=== PATIENT | female | born 1980 | race Caucasian/White ===

== ENCOUNTER 2016-05-13 07:59 | Emergency (ER) | payer MEDICAID ==
[2016-05-13 08:53] LABS: BASO % 0.5 % (0.0-1.0); EOS # 0.1 K/mm3 (0.0-0.50); EOS % 2.2 % (0.0-3.0); LARGE UNSTAINED CELL # 0.1 K/mm3 (0.0-0.4); LARGE UNSTAINED CELL % 1.6 % (0.0-4.0); LYMPH # 1.7 K/mm3 (1.5-4.5); LYMPH % 25.4 % (24.0-44.0); MEAN CORPUSCULAR HEMOGLOBIN 32.2 pg (27.0-33.0); MEAN CORPUSCULAR HGB CONC 34.3 g/dl (32.0-36.5); MEAN CORPUSCULAR VOLUME 93.8 fl (80.0-96.0); MONO # 0.2 K/mm3 (0.0-0.8); MONO % 3.5 % (0.0-5.0); NEUTROPHILS # 4.4 K/mm3 (1.8-7.7); NEUTROPHILS % 66.8 % (36.0-66.0); PLATELET COUNT, AUTOMATED 338 k/mm3 (150-450); RED CELL DISTRIBUTION WIDTH 12.2 % (11.5-14.5); WHITE BLOOD COUNT 6.5 K/mm3 (4.0-10.0)
[2016-05-13 08:57] LABS: CONTROL LINE UCG INT CTR LINE PRESENT
[2016-05-13 09:20] LABS: ALBUMIN 3.5 GM/DL (3.2-5.2); ALKALINE PHOSPHATASE 48 U/L (45-117); ALT/SGPT 26 U/L (12-78); ANION GAP 7 MEQ/L (8-16); AST/SGOT 11 U/L (15-37); BILIRUBIN,DIRECT 0.1 MG/DL (0.0-0.2); BILIRUBIN,TOTAL 0.3 MG/DL (0.2-1.0); BLOOD UREA NITROGEN 12 MG/DL (7-18); CALCIUM LEVEL 8.8 MG/DL (8.5-10.1); CARBON DIOXIDE LEVEL 28 MEQ/L (21-32); CHLORIDE LEVEL 104 MEQ/L (98-107); CREATININE FOR GFR 0.69 MG/DL (0.55-1.02); GLOMERULAR FILTRATION RATE > 60.0 (>60); GLUCOSE, FASTING 263 MG/DL (70-105); POTASSIUM SERUM 4.2 MEQ/L (3.5-5.1); SODIUM LEVEL 139 MEQ/L (136-145); T UPTAKE 34 % (30-39); THYROXINE (T4) 9.7 UG/DL (4.5-12.0)
--- NOTE | 2016-05-13 12:05 | EDDOCDS ---
Nurse's Notes [facility] Name: Fara Bolanos Age: 36 yrs Sex: Female : 1980 Arrival Date: 05/13/2016 Time: 07:59 Bed I3 / M3 Private MD: No Pcp Diagnosis: Lower abdominal pain, unspecified;Type 2 diabetes mellitus-new diagnosis;Hirsutism-unspecified Presentation: 05/13 08:09 Presenting complaint: Patient states: woke with lower abdominal pain. Ibuprofen kr3 decreased pain but still feeling weak and dizzy. Risk factors: the patient reports no vaginal bleeding. Adult Sepsis Screening: The patient does not have new or worsening altered mentation. Patient's respiratory rate is less than 22. Systolic blood pressure is greater than 100. Patient has a qSOFA score of 0- Negative Sepsis Screen. Suicide/Homicide risk assessment- the patient denies having any suicidal and/or homicidal ideations and does not present with any other emotional, behavioral or mental health complaints. 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 Transition of care: patient was not received from another setting of care. 08:09 Acuity: RANJIT Level 3 kr3 08:09 Method Of Arrival: Walkin/Carried/Asstd kr3 Triage Assessment: 08:10 General: Appears in no apparent distress, comfortable, Behavior is appropriate for age, kr3 cooperative. General: Reports weakness. Pain: Location: suprapubic area Pain currently is 1 out of 10 on a pain scale. Pt Declines HIV testing. Neurological: No deficits noted. Respiratory: Respiratory effort is even, unlabored. GI: Reports had dry heaves but none at present. : Denies burning with urination, discharge, urinary frequency, urgency, vaginal bleeding. Derm: Skin is normal. 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 none - PMHx: none; - PSHx: Tubal ligation; - Social history: Smoking status: Patient states former smoker of tobacco. No barriers to communication noted, The patient speaks fluent Greek, Speaks appropriately for age. - Family history: Not pertinent. - : The pt / caregiver states he / she is not on anticoagulants. Home medication list is obtained from the patient. - Exposure Risk Screening:: None identified. Screenin:15 Screening information is obtained from the patient. Fall risk: No risks identified. dls Assistance ADL's: requires no assistance with activities of daily living. Abuse/DV Screen: The patient / caregiver reports he/she is: not in a situation that causes fear, pain or injury. Nutritional screening: No deficits noted. Advance Directives: Currently, there is no health care proxy. There is no active DNR order. There is no living will. There is no Power of Telegraphic Instrument Supervisor. Advance directive information has not previously been placed in an [facility] medical record. home support is adequate. Assessment: 09:53 General: pt taken to US at this time. NAD noted.. Neurological: Level of Consciousness ttb is awake, alert. Respiratory: Airway is patent Respiratory effort is even, unlabored. Derm: Skin is normal. 12:03 General: Appears in no apparent distress, comfortable, Behavior is appropriate for age, mb9 cooperative. Respiratory: Airway is patent Respiratory effort is even, unlabored. Vital Signs: 08:10 BP 113 / 60; Pulse 78; Resp 16; Temp 97.7(O); Pulse Ox 98% on R/A; Weight 83.91 kg (R); kr3 Height 5 ft. 3 in. (160.02 cm) (R); 11:44 BP 144 / 79; Pulse 86; Resp 20; Temp 96.5; Pulse Ox 98% ; Pain 0/10; jam1 08:10 Body Mass Index 32.77 (83.91 kg, 160.02 cm) kr3 Vitals: 08:10 Log In Time: May 13, 2016 at 07:59. kr3 ED Course: 08:04 Patient visited by Henry Price Reg. mpb 08:04 Patient moved to Waiting mpb 08:05 No Pcp is Private Physician. mpb 08:10 Triage Initiated kr3 08:15 Patient moved to I3 / M3 kr3 08:19 Chi Fregoso PA-C is PHCP. ar2 08:20 Kirill Early MD is Attending Physician. ar2 08:23 Patient visited by Chi Fregoso PA-C. ar2 08:50 UA Sent. jam1 08:51 Thyroid Profile Sent. jam1 08:51 Liver Profile Sent. jam1 08:51 MED Profile Sent. jam1 08:51 CBC with Diff Sent. jam1 09:34 [facility] Payment Agreement was scanned into [employer] and attached to record. lg 09:53 Patient visited by Lana Vargas RN. ttb 09:54 Patient visited by Lana Vargas RN. ttb 11:14 Patient visited by Gabriela Shepherd RN. dls 11:15 The patient / caregiver is instructed regarding the plan of care and ED course. dls 11:38 [facility] is Referral Physician. ar2 11:53 Henry Pennington RN is Primary Nurse. mb9 12:03 No IV's were initiated during this patient's visit. No procedures done that require mb9 assistance. Order Results: Lab Order: CBC with Diff; SPEC'M 05/13/16 08:47 Test: WHITE BLOOD COUNT; Value: 6.5; Range: 4.0-10.0; Units: K/mm3; Status: F Test: RED BLOOD COUNT; Value: 4.05; Range: 4.00-5.40; Units: M/mm3; Status: F Test: HEMOGLOBIN; Value: 13.0; Range: 12.0-16.0; Units: g/dl; Status: F Test: HEMATOCRIT; Value: 38.0; Range: 36.0-47.0; Units: %; Status: F Test: MEAN CORPUSCULAR VOLUME; Value: 93.8; Range: 80.0-96.0; Units: fl; Status: F Test: MEAN CORPUSCULAR HEMOGLOBIN; Value: 32.2; Range: 27.0-33.0; Units: pg; Status: F Test: MEAN CORPUSCULAR HGB CONC; Value: 34.3; Range: 32.0-36.5; Units: g/dl; Status: F Test: RED CELL DISTRIBUTION WIDTH; Value: 12.2; Range: 11.5-14.5; Units: %; Status: F Test: PLATELET COUNT, AUTOMATED; Value: 338; Range: 150-450; Units: k/mm3; Status: F Test: NEUTROPHILS %; Value: 66.8; Range: 36.0-66.0; Abnormal: Above high normal; Units: %; Status: F Test: LYMPH %; Value: 25.4; Range: 24.0-44.0; Units: %; Status: F Test: MONO %; Value: 3.5; Range: 0.0-5.0; Units: %; Status: F Test: EOS %; Value: 2.2; Range: 0.0-3.0; Units: %; Status: F Test: BASO %; Value: 0.5; Range: 0.0-1.0; Units: %; Status: F Test: LARGE UNSTAINED CELL %; Value: 1.6; Range: 0.0-4.0; Units: %; Status: F Test: NEUTROPHILS #; Value: 4.4; Range: 1.8-7.7; Units: K/mm3; Status: F Test: LYMPH #; Value: 1.7; Range: 1.5-4.5; Units: K/mm3; Status: F Test: MONO #; Value: 0.2; Range: 0.0-0.8; Units: K/mm3; Status: F Test: EOS #; Value: 0.1; Range: 0.0-0.50; Units: K/mm3; Status: F Test: BASO #; Value: 0.0; Range: 0.0-0.2; Units: K/mm3; Status: F Test: LARGE UNSTAINED CELL #; Value: 0.1; Range: 0.0-0.4; Units: K/mm3; Status: F Lab Order: MED Profile; SPEC'M 05/13/16 08:47 Test: GLUCOSE, FASTING; Value: 263; Range: 70-105; Abnormal: Above high normal; Units: MG/DL; Status: F Test: BLOOD UREA NITROGEN; Value: 12; Range: 7-18; Units: MG/DL; Status: F Test: CREATININE FOR GFR; Value: 0.69; Range: 0.55-1.02; Units: MG/DL; Status: F Test: GLOMERULAR FILTRATION RATE; Value: > 60.0; Range: >60; Status: F Test: SODIUM LEVEL; Value: 139; Range: 136-145; Units: MEQ/L; Status: F Test: POTASSIUM SERUM; Value: 4.2; Range: 3.5-5.1; Units: MEQ/L; Status: F Test: CHLORIDE LEVEL; Value: 104; Range: 98-107; Units: MEQ/L; Status: F Test: CARBON DIOXIDE LEVEL; Value: 28; Range: 21-32; Units: MEQ/L; Status: F Test: ANION GAP; Value: 7; Range: 8-16; Abnormal: Below low normal; Units: MEQ/L; Status: F Test: CALCIUM LEVEL; Value: 8.8; Range: 8.5-10.1; Units: MG/DL; Status: F Test Note: ; Units are mL/min/1.73 m2 Chronic Kidney Disease Staging per NKF: Stage I & II GFR >=60 Normal to Mildly Decreased Stage III GFR 30-59 Moderately Decreased Stage IV GFR 15-29 Severely Decreased Stage V GFR <15 Very Little GFR Left ESRD GFR <15 on PACKAGE DYER Lab Order: Liver Profile; SPEC'05/13/16 08:47 Test: AST/SGOT; Value: 11; Range: 15-37; Abnormal: Below low normal; Units: U/L; Status: F Test: ALT/SGPT; Value: 26; Range: 12-78; Units: U/L; Status: F Test: ALKALINE PHOSPHATASE; Value: 48; Range: 45-117; Units: U/L; Status: F Test: BILIRUBIN,TOTAL; Value: 0.3; Range: 0.2-1.0; Units: MG/DL; Status: F Test: BILIRUBIN,DIRECT; Value: 0.1; Range: 0.0-0.2; Units: MG/DL; Status: F Test: TOTAL PROTEIN; Value: 7.0; Range: 6.4-8.2; Units: GM/DL; Status: F Test: ALBUMIN; Value: 3.5; Range: 3.2-5.2; Units: GM/DL; Status: F Test: ALBUMIN/GLOBULIN RATIO; Value: 1.00; Range: 1.00-1.93; Status: F Lab Order: Thyroid Profile; SPEC05/13/16 08:47 Test: T UPTAKE; Value: 34; Range: 30-39; Units: %; Status: F Test: THYROXINE (T4); Value: 9.7; Range: 4.5-12.0; Units: UG/DL; Status: F Test: FREE THYROXINE INDEX; Value: 3.3; Range: 1.3-4.8; Units: %; Status: F Test: THYROID STIMULATING HORMONE; Value: 1.020; Range: 0.358-3.740; Units: uIU/ML; Status: F Lab Order: UA; SPEC'M 05/13/16 08:47 Test: APPEARANCE, URINE; Value: CLEAR; Range: CLEAR; Status: F Test: COLOR, URINE; Value: YELLOW; Range: YELLOW; Status: F Test: PH,URINE; Value: 5.0; Range: 5.0-9.0; Units: UNITS; Status: F Test: SPECIFIC GRAVITY URINE AUTO; Value: 1.038; Range: 1.002-1.035; Status: F Test: PROTEIN, URINE AUTO; Value: NEGATIVE; Range: NEGATIVE; Units: mg/dL; Status: F Test: GLUCOSE, URINE (UA) AUTO; Value: 3+; Range: NEGATIVE; Abnormal: Above high normal; Units: mg/dL; Status: F Test: KETONE, URINE AUTO; Value: NEGATIVE; Range: NEGATIVE; Units: mg/dL; Status: F Test: UROBILINOGEN, URINE AUTO; Value: 0.2; Range: 0.0-2.0; Units: mg/dL; Status: F Test: BILIRUBIN, URINE AUTO; Value: NEGATIVE; Range: NEGATIVE; Status: F Test: NITRITE, URINE AUTO; Value: NEGATIVE; Range: NEGATIVE; Status: F Test: LEUKOCYTE ESTERASE, URINE AUTO; Value: NEGATIVE; Range: NEGATIVE; Status: F Test: BLOOD, URINE BLOOD; Value: NEGATIVE; Range: NEGATIVE; Status: F Test: WBC, URINE AUTO; Value: 3; Range: 0-3; Units: /HPF; Status: F Test: RBC, URINE AUTO; Value: 3; Range: 0-3; Units: /HPF; Status: F Test: BACTERIA, URINE AUTO; Value: NEGATIVE; Range: NEGATIVE; Status: F Test: SQUAMOUS EPITHELIAL CELL UR AU; Value: 2; Range: 0-6; Units: /HPF; Status: F Test: MUCUS, URINE; Value: SMALL; Range: NEGATIVE; Status: F Test: HYALINE CAST, URINE AUTO; Value: 0; Range: 0-1; Units: /LPF; Status: F Lab Order: UCG- In Lab; SPEC'M 05/13/16 08:47 Test: URINE PREG TEST; Value: NEGATIVE; Range: NEGATIVE; Status: F Lab Order: Hemoglobin A1c; SPEC'M 05/13/16 08:47 Test: HEMOGLOBIN A1c; Value: 8.9; Range: 4.5-6.2; Abnormal: Above high normal; Units: %; Status: F Test: ESTIMATED AVERAGE GLUCOSE; Value: 209; Range: 60-110; Abnormal: Above high normal; Units: MG/DL; Status: F Outcome: 11:42 Discharge ordered by Provider. ar2 12:03 Discharge Assessment: Patient awake, alert and oriented x 3. No cognitive and/or mb9 functional deficits noted. Patient verbalized understanding of disposition instructions. patient administered narcotics - no. The following High Risk Discharge criteria are identified: None. Discharged to home ambulatory. Condition: good Condition: stable Condition: improved. Discharge instructions given to patient, Instructed on discharge instructions, follow up and referral plans. medication usage, diet, Demonstrated understanding of instructions, medications, Pt was receptive of discharge instructions/ teaching. Prescriptions given X 3. No special radiology studies were completed. Property :Personal belongings accompany Pt. 12:05 Patient left the ED. mb9 Signatures: Gabriela Shepherd, RN RN dls Jesusita Carrillo, TERMINAL GAUGER TERMINAL GAUGER jam1 Petey Sharma, Reg Reg lg Lena Mak,RN RN demond3 Chi Fregoso, PAOmega PAJeanC [email or web address] Lana Vargas, RN RN belleb Henry PenningtonRN RN mb9 Henry Price, Reg Reg mpb MTDD
--- NOTE | 2016-05-13 12:05 | EDDOCDS ---
Physician Documentation [facility] Name: Fara Bolanos Age: 36 yrs Sex: Female : 1980 Arrival Date: 05/13/2016 Time: 07:59 Bed I3 / M3 Private MD: No Pcp Disposition: 05/13/16 11:42 Discharged to Home/Self Care. Impression: Lower abdominal pain, unspecified, Type 2 diabetes mellitus - new diagnosis, Hirsutism - unspecified. - Condition is Stable. - Discharge Instructions: Type 2 Diabetes Mellitus, Adult, Diabetes Mellitus and Food. - Prescriptions for Diabetic Supplies, Miscellan. - Glucometer, lancets and Glucometer Strips: Dispense: 1 glucometer, 30 lancets and 1 container (#30), sig: use as directed-check blood sugar twice daily. Metformin 500 mg Oral Tablet - take 1 tablet by ORAL route 2 times per day with morning and evening meals; 60 tablet. ZOFRAN ODT 4 mg Oral - dissolve 1 tablet by ORAL route every 8 hours As needed do not chew, do not swallow whole; 10 tablet. - Medication Reconciliation, Local Pharmacy Hours form. - [facility]; When: Call to arrange an appointment; Reason: Further diagnostic work-up, Recheck today's complaints, Continuance of care. Follow up: Emergency Department; When: As needed; Reason: Worsening of conditions. - Problem is new. - Symptoms have improved. Historical: - Allergies: no known allergies; - Home Meds: 1. none - PMHx: none; - PSHx: Tubal ligation; - Social history: Smoking status: Patient states former smoker of tobacco. No barriers to communication noted, The patient speaks fluent [place] Citizen, Speaks appropriately for age. - Family history: Not pertinent. - : The pt / caregiver states he / she is not on anticoagulants. Home medication list is obtained from the patient. - Exposure Risk Screening:: None identified. 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 3 in. (160.02 cm) (R); 11:44 BP 144 / 79; Pulse 86; Resp 20; Temp 96.5; Pulse Ox 98% ; Pain 0/10; jam1 08:10 Body Mass Index 32.77 (83.91 kg, 160.02 cm) kr3 MDM: 08:37 CBC with Diff Ordered. EDMS 08:37 MED Profile Ordered. EDMS 08:37 Liver Profile Ordered. EDMS 08:37 Thyroid Profile Ordered. EDMS 08:37 UA Ordered. EDMS 08:37 -US Pelvic Non-Ob Complete Ordered. EDMS 08:37 DUPLEX SCAN LIMITED (DOPPLER)+US Ordered. EDMS 08:52 UCG- In Lab Ordered. EDMS 08:55 Financial registration complete. lg 09:11 CBC with Diff Reviewed. ar2 09:11 UA Reviewed. ar2 09:11 UCG- In Lab Reviewed. ar2 09:12 Hemoglobin A1c Ordered. EDMS 09:34 [facility] Payment Agreement was scanned into [employer] and attached to record. lg 09:45 MED Profile Reviewed. ar2 09:45 Liver Profile Reviewed. ar2 09:45 Thyroid Profile Reviewed. ar2 10:15 Transvaginal NON- US Ordered. EDMS 10:16 Hemoglobin A1c Reviewed. ar2 Signatures: Dispatcher [employer] EDMS Gabriela Shepherd, JONA RN dls Petey Sharma Reg Reg lg Lena Mak,JONA RN kr3 Chi Fregoso, PA-C PA-C ar2 Henry Pennington RN RN mb9 The chart was reviewed and I authenticate all verbal orders and agree with the evaluation and treatment provided.Corrections: (The following items were deleted from the chart) 08:51 08:36 UCG by Nursing ordered. ar2 ar2 Attachments: 09:34 [facility] Payment Agreement lg MTDD
--- NOTE | 2016-05-13 21:01 | REP ---
Pelvic ultrasound non OB 05/13/2016 Indication: Pelvic pain, possible polycystic ovarian syndrome Comparison: Pelvic ultrasound 01/07/2015 Technique: Transabdominal transvaginal ultrasound was performed of the pelvis study performed with maier scale imaging color-flow Doppler and spectral wave Doppler Findings: Date of last menstrual period is 04/27/2016. The patient is Uterus measures 10.3 x 4.6 x 5.5 cm. Endometrium is 12.4 mm in thickness and smooth. Right ovary measures 5.3 x 2.3 x 3.0 cm and contains small follicles. Left ovary measures 3.8 x 3.1 x 3.0 cm and also contains a few small follicles. Perfusion is noted to the bilateral ovaries, therefore no evidence of torsion. There is no free fluid in the cul-de-sac. Small Nabothian cyst is identified within the cervix of 7 mm diameter. Impression 1. Endometrium is 12.4 mm in thickness and smooth 2. Few small bilateral nonspecific ovarian follicles. No definitive evidence of polycystic ovary. No evidence of ovarian torsion bilaterally. 3. No free fluid in cul-de-sac 4. 7 mm Nabothian cysts within cervix Signed by Sita Tinsley MD 05/13/2016 08:53 P
--- NOTE | 2016-05-15 13:06 | EDDOCDS ---
Physician Documentation [facility] Name: Fara Bolanos Age: 36 yrs Sex: Female : 1980 Arrival Date: 05/13/2016 Time: 07:59 Bed I3 / M3 Private MD: No Pcp Disposition: 05/13/16 11:42 Discharged to Home/Self Care. Impression: Lower abdominal pain, unspecified, Type 2 diabetes mellitus - new diagnosis, Hirsutism - unspecified. - Condition is Stable. - Discharge Instructions: Type 2 Diabetes Mellitus, Adult, Diabetes Mellitus and Food. - Prescriptions for Diabetic Supplies, Miscellan. - Glucometer, lancets and Glucometer Strips: Dispense: 1 glucometer, 30 lancets and 1 container (#30), sig: use as directed-check blood sugar twice daily. Metformin 500 mg Oral Tablet - take 1 tablet by ORAL route 2 times per day with morning and evening meals; 60 tablet. ZOFRAN ODT 4 mg Oral - dissolve 1 tablet by ORAL route every 8 hours As needed do not chew, do not swallow whole; 10 tablet. - Medication Reconciliation, Local Pharmacy Hours form. - [facility] up[facility]; When: Call to arrange an appointment; Reason: Further diagnostic work-up, Recheck today's complaints, Continuance of care. Follow up: Emergency Department; When: As needed; Reason: Worsening of conditions. - Problem is new. - Symptoms have improved. Historical: - Allergies: no known allergies; - Home Meds: 1. none - PMHx: none; - PSHx: Tubal ligation; - Social history: Smoking status: Patient states former smoker of tobacco. No barriers to communication noted, The patient speaks fluent Thai, Speaks appropriately for age. - Family history: Not pertinent. - : The pt / caregiver states he / she is not on anticoagulants. Home medication list is obtained from the patient. - Exposure Risk Screening:: None identified. 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 3 in. (160.02 cm) (R); 11:44 BP 144 / 79; Pulse 86; Resp 20; Temp 96.5; Pulse Ox 98% ; Pain 0/10; jam1 08:10 Body Mass Index 32.77 (83.91 kg, 160.02 cm) kr3 MDM: 08:37 CBC with Diff Ordered. EDMS 08:37 MED Profile Ordered. EDMS 08:37 Liver Profile Ordered. EDMS 08:37 Thyroid Profile Ordered. EDMS 08:37 UA Ordered. EDMS 08:37 -US Pelvic Non-Ob Complete Ordered. EDMS 08:37 DUPLEX SCAN LIMITED (DOPPLER)+US Ordered. EDMS 08:52 UCG- In Lab Ordered. EDMS 08:55 Financial registration complete. lg 09:11 CBC with Diff Reviewed. ar2 09:11 UA Reviewed. ar2 09:11 UCG- In Lab Reviewed. ar2 09:12 Hemoglobin A1c Ordered. EDMS 09:34 [facility] Payment Agreement was scanned into [employer] and attached to record. lg 09:45 MED Profile Reviewed. ar2 09:45 Liver Profile Reviewed. ar2 09:45 Thyroid Profile Reviewed. ar2 10:15 Transvaginal NON- US Ordered. EDMS 10:16 Hemoglobin A1c Reviewed. ar2 20:56 T-Sheet-- Draft Copy was scanned into [employer] and attached to record. klr Signatures: Dispatcher [employer] Gabriela Gilliam, RN JONA dls Petey Sharma, Reg Reg lg Lena Mak RN RN kr3 Chi Fregoso, PA-C PA-Georges ar2 Henry Pennington RN RN mb9 Carlita Carpior The chart was reviewed and I authenticate all verbal orders and agree with the evaluation and treatment provided.Corrections: (The following items were deleted from the chart) 08:51 08:36 UCG by Nursing ordered. ar2 ar2 Attachments: 09:34 [facility] Payment Agreement lg 20:56 T-Sheet-- Draft Copy klr Chart Complete MTDD
--- NOTE | 2016-05-15 13:06 | EDDOCDS ---
Nurse's Notes [facility] Name: Fara Bolanos Age: 36 yrs Sex: Female : 1980 Arrival Date: 05/13/2016 Time: 07:59 Bed I3 / M3 Private MD: No Pcp Diagnosis: Lower abdominal pain, unspecified;Type 2 diabetes mellitus-new diagnosis;Hirsutism-unspecified Presentation: 05/13 08:09 Presenting complaint: Patient states: woke with lower abdominal pain. Ibuprofen kr3 decreased pain but still feeling weak and dizzy. Risk factors: the patient reports no vaginal bleeding. Adult Sepsis Screening: The patient does not have new or worsening altered mentation. Patient's respiratory rate is less than 22. Systolic blood pressure is greater than 100. Patient has a qSOFA score of 0- Negative Sepsis Screen. Suicide/Homicide risk assessment- the patient denies having any suicidal and/or homicidal ideations and does not present with any other emotional, behavioral or mental health complaints. 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 Transition of care: patient was not received from another setting of care. 08:09 Acuity: RANJIT Level 3 kr3 08:09 Method Of Arrival: Walkin/Carried/Asstd kr3 Triage Assessment: 08:10 General: Appears in no apparent distress, comfortable, Behavior is appropriate for age, kr3 cooperative. General: Reports weakness. Pain: Location: suprapubic area Pain currently is 1 out of 10 on a pain scale. Pt Declines HIV testing. Neurological: No deficits noted. Respiratory: Respiratory effort is even, unlabored. GI: Reports had dry heaves but none at present. : Denies burning with urination, discharge, urinary frequency, urgency, vaginal bleeding. Derm: Skin is normal. 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 none - PMHx: none; - PSHx: Tubal ligation; - Social history: Smoking status: Patient states former smoker of tobacco. No barriers to communication noted, The patient speaks fluent Malay, Speaks appropriately for age. - Family history: Not pertinent. - : The pt / caregiver states he / she is not on anticoagulants. Home medication list is obtained from the patient. - Exposure Risk Screening:: None identified. Screenin:15 Screening information is obtained from the patient. Fall risk: No risks identified. dls Assistance ADL's: requires no assistance with activities of daily living. Abuse/DV Screen: The patient / caregiver reports he/she is: not in a situation that causes fear, pain or injury. Nutritional screening: No deficits noted. Advance Directives: Currently, there is no health care proxy. There is no active DNR order. There is no living will. There is no Power of Rehab Liaison. Advance directive information has not previously been placed in an [facility] medical record. home support is adequate. Assessment: 09:53 General: pt taken to US at this time. NAD noted.. Neurological: Level of Consciousness ttb is awake, alert. Respiratory: Airway is patent Respiratory effort is even, unlabored. Derm: Skin is normal. 12:03 General: Appears in no apparent distress, comfortable, Behavior is appropriate for age, mb9 cooperative. Respiratory: Airway is patent Respiratory effort is even, unlabored. Vital Signs: 08:10 BP 113 / 60; Pulse 78; Resp 16; Temp 97.7(O); Pulse Ox 98% on R/A; Weight 83.91 kg (R); kr3 Height 5 ft. 3 in. (160.02 cm) (R); 11:44 BP 144 / 79; Pulse 86; Resp 20; Temp 96.5; Pulse Ox 98% ; Pain 0/10; jam1 08:10 Body Mass Index 32.77 (83.91 kg, 160.02 cm) kr3 Vitals: 08:10 Log In Time: May 13, 2016 at 07:59. kr3 ED Course: 08:04 Patient visited by Henry Price Reg. mpb 08:04 Patient moved to Waiting mpb 08:05 No Pcp is Private Physician. mpb 08:10 Triage Initiated kr3 08:15 Patient moved to I3 / M3 kr3 08:19 Chi Fregoso PA-C is PHCP. ar2 08:20 Kirill Early MD is Attending Physician. ar2 08:23 Patient visited by Chi Fregoso PA-C. ar2 08:50 UA Sent. jam1 08:51 Thyroid Profile Sent. jam1 08:51 Liver Profile Sent. jam1 08:51 MED Profile Sent. jam1 08:51 CBC with Diff Sent. jam1 09:34 [facility] Payment Agreement was scanned into Active-[employer]i and attached to record. lg 09:53 Patient visited by Lana Vargas RN. ttb 09:54 Patient visited by Lana Vargas RN. ttb 11:14 Patient visited by Gabriela Shepherd, JONA. dls 11:15 The patient / caregiver is instructed regarding the plan of care and ED course. dls 11:38 [facility] is Referral Physician. ar2 11:53 Henry Pennington,JONA is Primary Nurse. mb9 12:03 No IV's were initiated during this patient's visit. No procedures done that require mb9 assistance. 20:56 T-Sheet-- Draft Copy was scanned into Active-[employer] and attached to record. klr 21:42 -US Pelvic Non-Ob Complete Returned. EDMS Order Results: Lab Order: CBC with Diff; SPEC'M 05/13/16 08:47 Test: WHITE BLOOD COUNT; Value: 6.5; Range: 4.0-10.0; Units: K/mm3; Status: F Test: RED BLOOD COUNT; Value: 4.05; Range: 4.00-5.40; Units: M/mm3; Status: F Test: HEMOGLOBIN; Value: 13.0; Range: 12.0-16.0; Units: g/dl; Status: F Test: HEMATOCRIT; Value: 38.0; Range: 36.0-47.0; Units: %; Status: F Test: MEAN CORPUSCULAR VOLUME; Value: 93.8; Range: 80.0-96.0; Units: fl; Status: F Test: MEAN CORPUSCULAR HEMOGLOBIN; Value: 32.2; Range: 27.0-33.0; Units: pg; Status: F Test: MEAN CORPUSCULAR HGB CONC; Value: 34.3; Range: 32.0-36.5; Units: g/dl; Status: F Test: RED CELL DISTRIBUTION WIDTH; Value: 12.2; Range: 11.5-14.5; Units: %; Status: F Test: PLATELET COUNT, AUTOMATED; Value: 338; Range: 150-450; Units: k/mm3; Status: F Test: NEUTROPHILS %; Value: 66.8; Range: 36.0-66.0; Abnormal: Above high normal; Units: %; Status: F Test: LYMPH %; Value: 25.4; Range: 24.0-44.0; Units: %; Status: F Test: MONO %; Value: 3.5; Range: 0.0-5.0; Units: %; Status: F Test: EOS %; Value: 2.2; Range: 0.0-3.0; Units: %; Status: F Test: BASO %; Value: 0.5; Range: 0.0-1.0; Units: %; Status: F Test: LARGE UNSTAINED CELL %; Value: 1.6; Range: 0.0-4.0; Units: %; Status: F Test: NEUTROPHILS #; Value: 4.4; Range: 1.8-7.7; Units: K/mm3; Status: F Test: LYMPH #; Value: 1.7; Range: 1.5-4.5; Units: K/mm3; Status: F Test: MONO #; Value: 0.2; Range: 0.0-0.8; Units: K/mm3; Status: F Test: EOS #; Value: 0.1; Range: 0.0-0.50; Units: K/mm3; Status: F Test: BASO #; Value: 0.0; Range: 0.0-0.2; Units: K/mm3; Status: F Test: LARGE UNSTAINED CELL #; Value: 0.1; Range: 0.0-0.4; Units: K/mm3; Status: F Lab Order: [facility]; [facility]'M 05/13/16 08:47 Test: GLUCOSE, FASTING; Value: 263; Range: 70-105; Abnormal: Above high normal; Units: MG/DL; Status: F Test: BLOOD UREA NITROGEN; Value: 12; Range: 7-18; Units: MG/DL; Status: F Test: CREATININE FOR GFR; Value: 0.69; Range: 0.55-1.02; Units: MG/DL; Status: F Test: GLOMERULAR FILTRATION RATE; Value: > 60.0; Range: >60; Status: F Test: SODIUM LEVEL; Value: 139; Range: 136-145; Units: MEQ/L; Status: F Test: POTASSIUM SERUM; Value: 4.2; Range: 3.5-5.1; Units: MEQ/L; Status: F Test: CHLORIDE LEVEL; Value: 104; Range: 98-107; Units: MEQ/L; Status: F Test: CARBON DIOXIDE LEVEL; Value: 28; Range: 21-32; Units: MEQ/L; Status: F Test: ANION GAP; Value: 7; Range: 8-16; Abnormal: Below low normal; Units: MEQ/L; Status: F Test: CALCIUM LEVEL; Value: 8.8; Range: 8.5-10.1; Units: MG/DL; Status: F Test Note: ; Units are mL/min/1.73 m2 Chronic Kidney Disease Staging per NKF: Stage I & II GFR >=60 Normal to Mildly Decreased Stage III GFR 30-59 Moderately Decreased Stage IV GFR 15-29 Severely Decreased Stage V GFR <15 Very Little GFR Left ESRD GFR <15 on THERAPIST SPEECH Lab Order: Liver Profile; SPEC'M 05/13/16 08:47 Test: AST/SGOT; Value: 11; Range: 15-37; Abnormal: Below low normal; Units: U/L; Status: F Test: ALT/SGPT; Value: 26; Range: 12-78; Units: U/L; Status: F Test: ALKALINE PHOSPHATASE; Value: 48; Range: 45-117; Units: U/L; Status: F Test: BILIRUBIN,TOTAL; Value: 0.3; Range: 0.2-1.0; Units: MG/DL; Status: F Test: BILIRUBIN,DIRECT; Value: 0.1; Range: 0.0-0.2; Units: MG/DL; Status: F Test: TOTAL PROTEIN; Value: 7.0; Range: 6.4-8.2; Units: GM/DL; Status: F Test: ALBUMIN; Value: 3.5; Range: 3.2-5.2; Units: GM/DL; Status: F Test: ALBUMIN/GLOBULIN RATIO; Value: 1.00; Range: 1.00-1.93; Status: F Lab Order: Thyroid Profile; SPEC'M 05/13/16 08:47 Test: T UPTAKE; Value: 34; Range: 30-39; Units: %; Status: F Test: THYROXINE (T4); Value: 9.7; Range: 4.5-12.0; Units: UG/DL; Status: F Test: FREE THYROXINE INDEX; Value: 3.3; Range: 1.3-4.8; Units: %; Status: F Test: THYROID STIMULATING HORMONE; Value: 1.020; Range: 0.358-3.740; Units: uIU/ML; Status: F Lab Order: UA; SPEC'M 05/13/16 08:47 Test: APPEARANCE, URINE; Value: CLEAR; Range: CLEAR; Status: F Test: COLOR, URINE; Value: YELLOW; Range: YELLOW; Status: F Test: PH,URINE; Value: 5.0; Range: 5.0-9.0; Units: UNITS; Status: F Test: SPECIFIC GRAVITY URINE AUTO; Value: 1.038; Range: 1.002-1.035; Status: F Test: PROTEIN, URINE AUTO; Value: NEGATIVE; Range: NEGATIVE; Units: mg/dL; Status: F Test: GLUCOSE, URINE (UA) AUTO; Value: 3+; Range: NEGATIVE; Abnormal: Above high normal; Units: mg/dL; Status: F Test: KETONE, URINE AUTO; Value: NEGATIVE; Range: NEGATIVE; Units: mg/dL; Status: F Test: UROBILINOGEN, URINE AUTO; Value: 0.2; Range: 0.0-2.0; Units: mg/dL; Status: F Test: BILIRUBIN, URINE AUTO; Value: NEGATIVE; Range: NEGATIVE; Status: F Test: NITRITE, URINE AUTO; Value: NEGATIVE; Range: NEGATIVE; Status: F Test: LEUKOCYTE ESTERASE, URINE AUTO; Value: NEGATIVE; Range: NEGATIVE; Status: F Test: BLOOD, URINE BLOOD; Value: NEGATIVE; Range: NEGATIVE; Status: F Test: WBC, URINE AUTO; Value: 3; Range: 0-3; Units: /HPF; Status: F Test: RBC, URINE AUTO; Value: 3; Range: 0-3; Units: /HPF; Status: F Test: BACTERIA, URINE AUTO; Value: NEGATIVE; Range: NEGATIVE; Status: F Test: SQUAMOUS EPITHELIAL CELL UR AU; Value: 2; Range: 0-6; Units: /HPF; Status: F Test: MUCUS, URINE; Value: SMALL; Range: NEGATIVE; Status: F Test: HYALINE CAST, URINE AUTO; Value: 0; Range: 0-1; Units: /LPF; Status: F Lab Order: UCG- In Lab; SPEC'M 05/13/16 08:47 Test: URINE PREG TEST; Value: NEGATIVE; Range: NEGATIVE; Status: F Lab Order: Hemoglobin A1c; SPEC'M 05/13/16 08:47 Test: HEMOGLOBIN A1c; Value: 8.9; Range: 4.5-6.2; Abnormal: Above high normal; Units: %; Status: F Test: ESTIMATED AVERAGE GLUCOSE; Value: 209; Range: 60-110; Abnormal: Above high normal; Units: MG/DL; Status: F Radiology Order: -US Pelvic Non-Ob Complete Test: -US Pelvic Non-Ob Complete REASON FOR EXAMINATION: pelvic pain ? pcos; Pelvic ultrasound non OB 05/13/2016; ; Indication: Pelvic pain, possible polycystic ovarian syndrome; ; Comparison: Pelvic ultrasound 01/07/2015; ; Technique: Transabdominal transvaginal ultrasound was performed of the pelvis; study performed with maier scale imaging color-flow Doppler and spectral wave; Doppler; ; Findings: Date of last menstrual period is 04/27/2016. The patient is ; ; Uterus measures 10.3 x 4.6 x 5.5 cm. Endometrium is 12.4 mm in thickness and; smooth.; ; Right ovary measures 5.3 x 2.3 x 3.0 cm and contains small follicles.; ; Left ovary measures 3.8 x 3.1 x 3.0 cm and also contains a few small follicles.; Perfusion is noted to the bilateral ovaries, therefore no evidence of torsion.; ; There is no free fluid in the cul-de-sac. Small Nabothian cyst is identified; within the cervix of 7 mm diameter.; ; Impression; 1. Endometrium is 12.4 mm in thickness and smooth; 2. Few small bilateral nonspecific ovarian follicles. No definitive evidence of; polycystic ovary. No evidence of ovarian torsion bilaterally.; 3. No free fluid in cul-de-sac; 4. 7 mm Nabothian cysts within cervix; ; ; Signed by; Sita Tinsley MD 05/13/2016 08:53 P; Outcome: 11:42 Discharge ordered by Provider. ar2 12:03 Discharge Assessment: Patient awake, alert and oriented x 3. No cognitive and/or mb9 functional deficits noted. Patient verbalized understanding of disposition instructions. patient administered narcotics - no. The following High Risk Discharge criteria are identified: None. Discharged to home ambulatory. Condition: good Condition: stable Condition: improved. Discharge instructions given to patient, Instructed on discharge instructions, follow up and referral plans. medication usage, diet, Demonstrated understanding of instructions, medications, Pt was receptive of discharge instructions/ teaching. Prescriptions given X 3. No special radiology studies were completed. Property :Personal belongings accompany Pt. 12:05 Patient left the ED. mb9 Signatures: Dispatcher [employer] EDMS Gabriela Shepherd, RN RN dls Jesusita Carrillo, PROFESSOR OF LITERACY PROFESSOR OF LITERACY jam1 Petey Sharma, Reg Reg lg Lena MakRN RN kr3 Chi Fregoso, PA-Georges PA-Georges ar2 Lana Vargas RN RN ttHenry Aparicio,RN RN mb9 Henry Price, Reg Reg mpb Carlita Carpio Chart Complete MTDD
--- NOTE | 2016-05-15 13:06 | EDDOCDS ---
Physician Documentation [facility] Name: Fara Bolanos Age: 36 yrs Sex: Female : 1980 Arrival Date: 05/13/2016 Time: 07:59 Bed I3 / M3 Private MD: No Pcp Disposition: 05/13/16 11:42 Discharged to Home/Self Care. Impression: Lower abdominal pain, unspecified, Type 2 diabetes mellitus - new diagnosis, Hirsutism - unspecified. - Condition is Stable. - Discharge Instructions: Type 2 Diabetes Mellitus, Adult, Diabetes Mellitus and Food. - Prescriptions for Diabetic Supplies, Miscellan. - Glucometer, lancets and Glucometer Strips: Dispense: 1 glucometer, 30 lancets and 1 container (#30), sig: use as directed-check blood sugar twice daily. Metformin 500 mg Oral Tablet - take 1 tablet by ORAL route 2 times per day with morning and evening meals; 60 tablet. ZOFRAN ODT 4 mg Oral - dissolve 1 tablet by ORAL route every 8 hours As needed do not chew, do not swallow whole; 10 tablet. - Medication Reconciliation, Local Pharmacy Hours form. - [facility]; When: Call to arrange an appointment; Reason: Further diagnostic work-up, Recheck today's complaints, Continuance of care. Follow up: Emergency Department; When: As needed; Reason: Worsening of conditions. - Problem is new. - Symptoms have improved. Historical: - Allergies: no known allergies; - Home Meds: 1. none - PMHx: none; - PSHx: Tubal ligation; - Social history: Smoking status: Patient states former smoker of tobacco. No barriers to communication noted, The patient speaks fluent Nicaraguan, Speaks appropriately for age. - Family history: Not pertinent. - : The pt / caregiver states he / she is not on anticoagulants. Home medication list is obtained from the patient. - Exposure Risk Screening:: None identified. [employer]ERG[employer] HELPER: 05/13 08:10 LMP 04/12/2016 kr3 Vital Signs: 08:10 BP 113 / 60; Pulse 78; Resp 16; Temp 97.7(O); Pulse Ox 98% on R/A; Weight 83.91 kg / kr3 184.99 lbs (R); Height 5 ft. 3 in. (160.02 cm) (R); 11:44 BP 144 / 79; Pulse 86; Resp 20; Temp 96.5; Pulse Ox 98% ; Pain 0/10; jam1 08:10 Body Mass Index 32.77 (83.91 kg, 160.02 cm) kr3 MDM: 08:37 CBC with Diff Ordered. EDMS 08:37 MED Profile Ordered. EDMS 08:37 Liver Profile Ordered. EDMS 08:37 Thyroid Profile Ordered. EDMS 08:37 UA Ordered. EDMS 08:37 -US Pelvic Non-Ob Complete Ordered. EDMS 08:37 DUPLEX SCAN LIMITED (DOPPLER)+US Ordered. EDMS 08:52 UCG- In Lab Ordered. EDMS 08:55 Financial registration complete. lg 09:11 CBC with Diff Reviewed. ar2 09:11 UA Reviewed. ar2 09:11 UCG- In Lab Reviewed. ar2 09:12 Hemoglobin A1c Ordered. EDMS 09:34 [facility] Payment Agreement was scanned into [employer] and attached to record. lg 09:45 MED Profile Reviewed. ar2 09:45 Liver Profile Reviewed. ar2 09:45 Thyroid Profile Reviewed. ar2 10:15 Transvaginal NON- US Ordered. EDMS 10:16 Hemoglobin A1c Reviewed. ar2 20:56 T-Sheet-- Draft Copy was scanned into [employer] and attached to record. klr Signatures: Dispatcher [employer] Gabriela Gilliam, RN JONA dls Petey Sharma, Reg Reg lg Lena Mak RN RN kr3 Chi Fregoso, PA-C PA-Georges ar2 Henry Pennington RN RN mb9 Carlita Carpior The chart was reviewed and I authenticate all verbal orders and agree with the evaluation and treatment provided.Corrections: (The following items were deleted from the chart) 08:51 08:36 UCG by Nursing ordered. ar2 ar2 Attachments: 09:34 [facility] Payment Agreement lg 20:56 T-Sheet-- Draft Copy klr Chart Complete MTDD
== END 2016-05-13 12:05 | disposition home or self-care (01) ==
LOC: M ED 07:59
DX: R10.30 Lower abdominal pain, unspecified (principal); E11.9 Type 2 diabetes mellitus without complications; L68.0 Hirsutism; Z87.891 Personal history of nicotine dependence

== ENCOUNTER → 2016-05-18 | Outpatient (REF) | payer MEDICAID ==
[2016-05-18 12:48] LABS: ALBUMIN 3.9 GM/DL (3.2-5.2); ALBUMIN/GLOBULIN RATIO 1.15 (1.00-1.93); ALKALINE PHOSPHATASE 49 U/L (45-117); ALT/SGPT 32 U/L (12-78); ANION GAP 9 MEQ/L (8-16); AST/SGOT 23 U/L (15-37); BILIRUBIN,TOTAL 0.5 MG/DL (0.2-1.0); BLOOD UREA NITROGEN 17 MG/DL (7-18); CARBON DIOXIDE LEVEL 29 MEQ/L (21-32); CHLORIDE LEVEL 103 MEQ/L (98-107); CHOLESTEROL LEVEL 252 MG/DL (<200); CREATININE FOR GFR 0.65 MG/DL (0.55-1.02); FREE T4 1.01 NG/DL (0.76-1.46); GLOMERULAR FILTRATION RATE > 60.0 (>60); GLUCOSE, FASTING 206 MG/DL (70-105); POTASSIUM SERUM 4.3 MEQ/L (3.5-5.1); SODIUM LEVEL 141 MEQ/L (136-145); TOTAL PROTEIN 7.3 GM/DL (6.4-8.2); TRIGLYCERIDES LEVEL 178 MG/DL (<150)
== END ==
LOC: M SFHCADAM 09:33
PROVIDERS: ATTEND Physician Assistant Medical
DX: E11.9 Type 2 diabetes mellitus without complications (principal); E66.9 Obesity, unspecified

== ENCOUNTER → 2016-07-02 | Outpatient (REF) | payer MEDICAID | LOC: M SFHCADAM 09:34 | PROVIDERS: ATTEND Physician Assistant Medical | DX: Z12.4 Encounter for screening for malignant neoplasm of cervix (principal) ==

== ENCOUNTER → 2016-08-29 | Outpatient (REF) | payer MEDICAID ==
[2016-08-29 13:38] LABS: ALBUMIN 3.9 GM/DL (3.2-5.2); ALBUMIN/GLOBULIN RATIO 1.18 (1.00-1.93); ALKALINE PHOSPHATASE 43 U/L (45-117); ALT/SGPT 26 U/L (12-78); ANION GAP 6 MEQ/L (8-16); AST/SGOT 12 U/L (15-37); BILIRUBIN,TOTAL 0.3 MG/DL (0.2-1.0); BLOOD UREA NITROGEN 13 MG/DL (7-18); CALCIUM LEVEL 9.1 MG/DL (8.5-10.1); CARBON DIOXIDE LEVEL 32 MEQ/L (21-32); CHLORIDE LEVEL 102 MEQ/L (98-107); CREATININE FOR GFR 0.56 MG/DL (0.55-1.02); GLOMERULAR FILTRATION RATE > 60.0 (>60); GLUCOSE, FASTING 156 MG/DL (70-105); POTASSIUM SERUM 4.9 MEQ/L (3.5-5.1); SODIUM LEVEL 140 MEQ/L (136-145); TOTAL PROTEIN 7.2 GM/DL (6.4-8.2)
== END ==
LOC: M SFHCADAM 08:02
PROVIDERS: ATTEND Physician Assistant Medical
DX: E11.9 Type 2 diabetes mellitus without complications (principal)

== ENCOUNTER → 2016-12-26 | Outpatient (REF) | payer OTHER ==
[2016-12-26 13:50] LABS: ALBUMIN 3.7 GM/DL (3.2-5.2); ALBUMIN/GLOBULIN RATIO 1.09 (1.00-1.93); ALKALINE PHOSPHATASE 38 U/L (45-117); ALT/SGPT 23 U/L (12-78); ANION GAP 8 MEQ/L (8-16); AST/SGOT 11 U/L (15-37); BILIRUBIN,TOTAL 0.3 MG/DL (0.2-1.0); BLOOD UREA NITROGEN 12 MG/DL (7-18); CALCIUM LEVEL 9.2 MG/DL (8.5-10.1); CARBON DIOXIDE LEVEL 28 MEQ/L (21-32); CHLORIDE LEVEL 107 MEQ/L (98-107); CHOLESTEROL LEVEL 183 MG/DL (<200); GLOMERULAR FILTRATION RATE > 60.0 (>60); GLUCOSE, FASTING 144 MG/DL (70-105); POTASSIUM SERUM 4.3 MEQ/L (3.5-5.1); SODIUM LEVEL 143 MEQ/L (136-145); TOTAL PROTEIN 7.1 GM/DL (6.4-8.2); TRIGLYCERIDES LEVEL 149 MG/DL (<150)
== END ==
LOC: M SFHCADAM 08:06
PROVIDERS: ATTEND Physician Assistant Medical
DX: E11.9 Type 2 diabetes mellitus without complications (principal); E55.9 Vitamin D deficiency, unspecified

== ENCOUNTER 2017-04-14 11:51 | Emergency (ER) | payer OTHER ==
[~2017-04-14] VITALS: Ht 160 cm; Wt 79.5 kg
[2017-04-14] MEDS ORDERED: PRAV20TA2 (12:04)
[2017-04-14] MEDS ORDERED: VITA1CAP40 (12:04)
[2017-04-14] MEDS ORDERED: METF10004 PO (12:04)
--- NOTE | 2017-04-14 14:27 | REP ---
Clinical: Acute cough . Comparison: None . Technique: PA and lateral. Findings: The mediastinum and cardiac silhouette are normal. The lung posey are clear and without acute consolidation, effusion, or pneumothorax. The skeletal structures are intact and normal. Impression: 1. No acute cardiopulmonary process. Signed by Curly Perez MD 04/14/2017 02:19 P
[2017-04-14] MEDS ORDERED: TESS100C PO (14:44)
[2017-04-14] MEDS ORDERED: ZITHTAB PO (14:44)
[2017-04-14 14:56] VITALS: BP 118/75
== END 2017-04-14 14:58 | disposition home or self-care (01) ==
LOC: M ED 11:51
DX: J06.9 Acute upper respiratory infection, unspecified (principal)

== ENCOUNTER → 2017-07-11 | Outpatient (REF) | payer OTHER ==
[2017-07-11 12:17] LABS: BASO % 0.4 % (0.0-1.0); EOS # 0.3 10^3/uL (0.0-0.50); EOS % 3.8 % (0.0-3.0); HEMATOCRIT 37.7 % (36.0-47.0); HEMOGLOBIN 12.5 g/dl (12.0-16.0); IMMATURE GRANULOCYTE % 0.3 % (0-3.0); LYMPH # 2.6 10^3/uL (1.5-4.5); LYMPH % 35.9 % (24.0-44.0); MEAN CORPUSCULAR HGB CONC 33.2 g/dl (32.0-36.5); MEAN CORPUSCULAR VOLUME 93.5 fl (80.0-96.0); MONO # 0.4 10^3/uL (0.0-0.8); MONO % 5.9 % (0.0-5.0); NEUTROPHILS # 3.8 10^3/uL (1.8-7.7); NEUTROPHILS % 53.7 % (36.0-66.0); PLATELET COUNT, AUTOMATED 425 10^3/uL (150-450); RED BLOOD COUNT 4.03 10^6/uL (4.00-5.40); RED CELL DISTRIBUTION WIDTH 12.5 % (11.5-14.5); WHITE BLOOD COUNT 7.1 10^3/uL (4.0-10.0)
[2017-07-11 12:59] LABS: MALB URINE SIEMENS 11.1 MG/L; MAU/CREAT RATIO 5.8 MCG/MG (0.0-30.0)
[2017-07-11 13:11] LABS: ALBUMIN 3.6 GM/DL (3.2-5.2); ALKALINE PHOSPHATASE 44 U/L (45-117); ALT/SGPT 23 U/L (12-78); ANION GAP 9 MEQ/L (8-16); AST/SGOT 14 U/L (7-37); BILIRUBIN,TOTAL 0.4 MG/DL (0.2-1.0); BLOOD UREA NITROGEN 13 MG/DL (7-18); CALCIUM LEVEL 8.7 MG/DL (8.5-10.1); CARBON DIOXIDE LEVEL 27 MEQ/L (21-32); CHLORIDE LEVEL 103 MEQ/L (98-107); CHOLESTEROL LEVEL 175 MG/DL (<200); CHOLESTEROL RISK RATIO 3.017 (<5); CREATININE FOR GFR 0.59 MG/DL (0.55-1.30); GLOMERULAR FILTRATION RATE > 60.0 (>60); GLUCOSE, FASTING 187 MG/DL (70-100); HDL CHOLESTEROL 58 MG/DL (>40); NON-HDL-C 117 MG/DL; POTASSIUM SERUM 4.4 MEQ/L (3.5-5.1); SODIUM LEVEL 139 MEQ/L (136-145); TOTAL PROTEIN 7.2 GM/DL (6.4-8.2); TRIGLYCERIDES LEVEL 115 MG/DL (<150)
[2017-07-11 13:40] LABS: ESTIMATED AVERAGE GLUCOSE 189 MG/DL (60-110); HEMOGLOBIN A1c 8.2 %
== END ==
LOC: M SFHCADAM 08:15
DX: E55.9 Vitamin D deficiency, unspecified (principal); E11.9 Type 2 diabetes mellitus without complications
CPT/HCPCS: 83036

== ENCOUNTER → 2017-09-20 | Outpatient (REF) | payer OTHER ==
[2017-09-20 13:11] LABS: ESTIMATED AVERAGE GLUCOSE 183 MG/DL (60-110)
[2017-09-20 13:14] LABS: ALBUMIN/GLOBULIN RATIO 1.11 (1.00-1.93); ALKALINE PHOSPHATASE 41 U/L (45-117); ALT/SGPT 30 U/L (12-78); ANION GAP 9 MEQ/L (8-16); AST/SGOT 16 U/L (7-37); BILIRUBIN,TOTAL 0.4 MG/DL (0.2-1.0); BLOOD UREA NITROGEN 15 MG/DL (7-18); CALCIUM LEVEL 8.7 MG/DL (8.5-10.1); CARBON DIOXIDE LEVEL 25 MEQ/L (21-32); CHLORIDE LEVEL 105 MEQ/L (98-107); CREATININE FOR GFR 0.61 MG/DL (0.55-1.30); GLOMERULAR FILTRATION RATE > 60.0 (>60); GLUCOSE, FASTING 170 MG/DL (70-100); POTASSIUM SERUM 4.2 MEQ/L (3.5-5.1); SODIUM LEVEL 139 MEQ/L (136-145); TOTAL PROTEIN 7.6 GM/DL (6.4-8.2)
== END ==
LOC: M SFHCADAM 08:03
DX: E11.9 Type 2 diabetes mellitus without complications (principal)

== ENCOUNTER → 2017-11-28 | Outpatient (REF) | payer OTHER | LOC: M SFHCADAM 12:10 | DX: L03.115 Cellulitis of right lower limb (principal) | CPT/HCPCS: 87186 ==

== ENCOUNTER → 2017-12-16 | Outpatient (REF) | payer OTHER ==
[2017-12-16 12:54] LABS: ALBUMIN 3.7 GM/DL (3.2-5.2); ALBUMIN/GLOBULIN RATIO 1.09 (1.00-1.93); ALKALINE PHOSPHATASE 35 U/L (45-117); ALT/SGPT 25 U/L (12-78); ANION GAP 10 MEQ/L (8-16); AST/SGOT 13 U/L (7-37); BILIRUBIN,TOTAL 0.4 MG/DL (0.2-1.0); BLOOD UREA NITROGEN 9 MG/DL (7-18); CALCIUM LEVEL 9.1 MG/DL (8.5-10.1); CARBON DIOXIDE LEVEL 26 MEQ/L (21-32); CHLORIDE LEVEL 106 MEQ/L (98-107); CHOLESTEROL LEVEL 190 MG/DL (<200); CHOLESTEROL RISK RATIO 2.968 (<5); CREATININE FOR GFR 0.48 MG/DL (0.55-1.30); GLOMERULAR FILTRATION RATE > 60.0 (>60); GLUCOSE, FASTING 129 MG/DL (70-100); HDL CHOLESTEROL 64 MG/DL (>40); LDL CHOLESTEROL 103.8 MG/DL (<100); NON-HDL-C 126 MG/DL; POTASSIUM SERUM 4.6 MEQ/L (3.5-5.1); SODIUM LEVEL 142 MEQ/L (136-145); TOTAL PROTEIN 7.1 GM/DL (6.4-8.2); TRIGLYCERIDES LEVEL 111 MG/DL (<150)
[2017-12-16 13:14] LABS: ESTIMATED AVERAGE GLUCOSE 171 MG/DL (60-110); HEMOGLOBIN A1c 7.6 %
== END ==
LOC: M SFHCADAM 08:16
DX: E11.9 Type 2 diabetes mellitus without complications (principal)

== ENCOUNTER → 2018-03-18 | Outpatient (REF) | payer OTHER ==
[2018-03-18 13:21] LABS: ALBUMIN 3.8 GM/DL (3.2-5.2); ALBUMIN/GLOBULIN RATIO 1.12 (1.00-1.93); ALKALINE PHOSPHATASE 42 U/L (45-117); ALT/SGPT 23 U/L (12-78); ANION GAP 7 MEQ/L (8-16); AST/SGOT 12 U/L (7-37); BILIRUBIN,TOTAL 0.4 MG/DL (0.2-1.0); BLOOD UREA NITROGEN 13 MG/DL (7-18); CALCIUM LEVEL 8.9 MG/DL (8.5-10.1); CARBON DIOXIDE LEVEL 27 MEQ/L (21-32); CHLORIDE LEVEL 106 MEQ/L (98-107); CREATININE FOR GFR 0.54 MG/DL (0.55-1.30); GLOMERULAR FILTRATION RATE > 60.0 (>60); GLUCOSE, FASTING 136 MG/DL (70-100); POTASSIUM SERUM 4.2 MEQ/L (3.5-5.1); SODIUM LEVEL 140 MEQ/L (136-145); TOTAL PROTEIN 7.2 GM/DL (6.4-8.2)
[2018-03-18 13:50] LABS: ESTIMATED AVERAGE GLUCOSE 160 MG/DL (60-110); HEMOGLOBIN A1c 7.2 %
== END ==
LOC: M SFHCADAM 08:07
DX: E11.9 Type 2 diabetes mellitus without complications (principal)
CPT/HCPCS: 80053

== ENCOUNTER → 2018-11-20 | Outpatient (REF) | payer OTHER ==
[~2018-11-20] MED LIST: HYDR-3715 PO; METF10004 PO; PRAV20TA2; TESS100C PO; VITA50005; ZITHTAB PO
[2018-11-20 12:55] LABS: BASO % 0.4 % (0.0-1.0); EOS # 0.2 10^3/uL (0.0-0.50); EOS % 2.8 % (0.0-3.0); HEMATOCRIT 40.3 % (36.0-47.0); LYMPH # 2.2 10^3/uL (1.5-4.5); MEAN CORPUSCULAR HEMOGLOBIN 31.9 pg (27.0-33.0); MEAN CORPUSCULAR HGB CONC 32.3 g/dl (32.0-36.5); MONO # 0.4 10^3/uL (0.0-0.8); MONO % 5.5 % (0.0-5.0); NEUTROPHILS # 4.2 10^3/uL (1.8-7.7); PLATELET COUNT, AUTOMATED 388 10^3/uL (150-450); RED BLOOD COUNT 4.07 10^6/uL (4.00-5.40)
[2018-11-20 13:30] LABS: ALBUMIN 3.7 GM/DL (3.2-5.2); ALT/SGPT 20 U/L (12-78); BILIRUBIN,TOTAL 0.3 MG/DL (0.2-1.0); BLOOD UREA NITROGEN 20 MG/DL (7-18); CALCIUM LEVEL 9.1 MG/DL (8.5-10.1); CARBON DIOXIDE LEVEL 29 MEQ/L (21-32); CHLORIDE LEVEL 105 MEQ/L (98-107); CHOLESTEROL LEVEL 169 MG/DL (<200); CREATININE FOR GFR 0.53 MG/DL (0.55-1.30); GLOMERULAR FILTRATION RATE > 60.0 (>60); GLUCOSE, FASTING 139 MG/DL (70-100); HDL CHOLESTEROL 65 MG/DL (>40); LDL CHOLESTEROL 77 MG/DL (<100); NON-HDL-C 104 MG/DL; POTASSIUM SERUM 4.4 MEQ/L (3.5-5.1); SODIUM LEVEL 140 MEQ/L (136-145); TOTAL 25(OH) VITAMIN D 29.4 NG/ML (30.0-100.0); TOTAL PROTEIN 7.3 GM/DL (6.4-8.2); TRIGLYCERIDES LEVEL 137 MG/DL (<150)
[2018-11-20 14:00] LABS: CREATININE, URINE 75.4 MG/DL; MALB URINE SIEMENS 12.4 MG/L; MAU/CREAT RATIO 16.4 MCG/MG (0.0-30.0)
[2018-11-20 14:35] LABS: HEMOGLOBIN A1c 7.8 %
== END ==
LOC: M SFHCADAM 07:53
PROVIDERS: ATTEND Physician Assistant Medical
DX: E11.9 Type 2 diabetes mellitus without complications (principal); E66.9 Obesity, unspecified; E55.9 Vitamin D deficiency, unspecified; E78.2 Mixed hyperlipidemia

== ENCOUNTER → 2019-06-12 | Outpatient (REF) | payer OTHER ==
[2019-06-12 15:25] LABS: ALBUMIN 4.1 GM/DL (3.2-5.2); ALT/SGPT 23 U/L (12-78); BILIRUBIN,TOTAL 0.5 MG/DL (0.2-1.0); BLOOD UREA NITROGEN 12 MG/DL (7-18); CALCIUM LEVEL 9.3 MG/DL (8.5-10.1); CARBON DIOXIDE LEVEL 30 MEQ/L (21-32); CHLORIDE LEVEL 106 MEQ/L (98-107); CHOLESTEROL LEVEL 198 MG/DL (<200); CHOLESTEROL RISK RATIO 2.675 (<5); CREATININE FOR GFR 0.61 MG/DL (0.55-1.30); GLOMERULAR FILTRATION RATE > 60.0 (>60); GLUCOSE, FASTING 107 MG/DL (70-100); HDL CHOLESTEROL 74 MG/DL (>40); LDL CHOLESTEROL 103 MG/DL (<100); NON-HDL-C 124 MG/DL; POTASSIUM SERUM 4.4 MEQ/L (3.5-5.1); SODIUM LEVEL 140 MEQ/L (136-145); TOTAL PROTEIN 7.7 GM/DL (6.4-8.2); TRIGLYCERIDES LEVEL 104 MG/DL (<150)
[2019-06-12 15:35] LABS: HEMOGLOBIN A1c 6.5 %
== END ==
LOC: M SFHCADAM 10:14
PROVIDERS: ATTEND Physician Assistant Medical
DX: E11.9 Type 2 diabetes mellitus without complications (principal)

== ENCOUNTER → 2020-06-24 | Outpatient (REF) | payer OTHER ==
[2020-06-24 12:45] LABS: HEMATOCRIT 40.8 % (36.0-47.0); HEMOGLOBIN 13.3 g/dl (12.0-15.5); MEAN CORPUSCULAR HEMOGLOBIN 31.4 pg (27.0-33.0); MEAN CORPUSCULAR HGB CONC 32.6 g/dl (32.0-36.5); MEAN CORPUSCULAR VOLUME 96.2 fl (80.0-96.0); PLATELET COUNT, AUTOMATED 406 10^3/uL (150-450); RED BLOOD COUNT 4.24 10^6/uL (4.00-5.40); WHITE BLOOD COUNT 6.1 10^3/uL (4.0-10.0)
[2020-06-24 13:45] LABS: ALBUMIN 4.1 GM/DL (3.2-5.2); ALT/SGPT 22 U/L (12-78); BILIRUBIN,TOTAL 0.4 MG/DL (0.2-1.0); BLOOD UREA NITROGEN 16 MG/DL (7-18); CALCIUM LEVEL 9.2 MG/DL (8.5-10.1); CARBON DIOXIDE LEVEL 27 MEQ/L (21-32); CHLORIDE LEVEL 106 MEQ/L (98-107); CHOLESTEROL LEVEL 189 MG/DL (<200); CHOLESTEROL RISK RATIO 2.907 (<5); CREATININE FOR GFR 0.59 MG/DL (0.55-1.30); GLOMERULAR FILTRATION RATE > 60.0 (>60); GLUCOSE, FASTING 145 MG/DL (70-100); HDL CHOLESTEROL 65 MG/DL (>40); LDL CHOLESTEROL 96 MG/DL (<100); NON-HDL-C 124 MG/DL; POTASSIUM SERUM 4.2 MEQ/L (3.5-5.1); SODIUM LEVEL 140 MEQ/L (136-145); TOTAL PROTEIN 7.3 GM/DL (6.4-8.2); TRIGLYCERIDES LEVEL 139 MG/DL (<150)
== END ==
LOC: M SFHCADAM 08:12
PROVIDERS: ATTEND Physician Assistant Medical
DX: E11.9 Type 2 diabetes mellitus without complications (principal); E66.9 Obesity, unspecified; E55.9 Vitamin D deficiency, unspecified; E78.2 Mixed hyperlipidemia

== ENCOUNTER → 2020-09-26 | Outpatient (REF) | payer OTHER | LOC: M SFHCADAM 16:24 | PROVIDERS: ATTEND Family Medicine | DX: Z12.4 Encounter for screening for malignant neoplasm of cervix (principal) ==

== ENCOUNTER → 2020-11-28 | Outpatient (REF) | payer OTHER | LOC: M SFHCWAGY 15:04 | PROVIDERS: ATTEND Nurse Practitioner Women's Health | DX: R87.610 Atypical squamous cells of undetermined significance on cytologic smear of cervix (ASC-US) (principal) ==

== ENCOUNTER → 2021-01-17 | Outpatient (CLI) | payer OTHER ==
--- NOTE | 2021-01-17 14:27 | REP ---
INDICATION: BREAST SCREENING. COMPARISON: None TECHNIQUE: Digital screening mammography was carried out bilaterally in the CC and MLO projections using both 2D and 3D modalities. Today's examination is initial screening examination. By history, the patient has no complaints of a palpable breast abnormality or other significant breast complaints. FINDINGS: The breasts are symmetric in size and shape. Dense heterogenous fibroglandular elements are seen bilaterally. In the upper outer quadrant of the right breast there is evidence of a potential asymmetric density with possible internal architectural distortion. No other suspicious features are seen in either breast. There are benign calcifications bilaterally. There is no skin thickening or nipple retraction. The Volpara volumetric breast density pattern is b. IMPRESSION: BIRADS/ACR category 0 mammogram. Asymmetric density seen in the upper outer quadrant of the right breast as described above and for which diagnostic digital DBT spot compression views are recommended in the CC and MLO projections along with ultrasonography if necessary. This patient's Tyrer-Cuzick lifetime breast cancer risk assessment score is 11.4%. This mammogram was interpreted with the aid of an FDA-approved computer-aided detection system. The patient states she had a clinical breast exam in December 2020. The patient letter being requested is M0. RECOMMENDATION: As above <Electronically signed by Sanjay Zhou > 01/17/21 [id number]
== END ==
LOC: M WHC 13:20
PROVIDERS: ATTEND Physician Assistant Medical
DX: Z12.31 Encounter for screening mammogram for malignant neoplasm of breast (principal)

== ENCOUNTER → 2021-02-03 | Outpatient (REF) | payer OTHER ==
[2021-02-03 13:26] LABS: HEMOGLOBIN A1c 8.3 %
[2021-02-03 13:38] LABS: ALBUMIN 3.6 GM/DL (3.2-5.2); ALT/SGPT 23 U/L (12-78); BILIRUBIN,TOTAL 0.5 MG/DL (0.2-1.0); BLOOD UREA NITROGEN 11 MG/DL (7-18); CARBON DIOXIDE LEVEL 30 MEQ/L (21-32); CHLORIDE LEVEL 103 MEQ/L (98-107); CREATININE FOR GFR 0.59 MG/DL (0.55-1.30); GLOMERULAR FILTRATION RATE > 60.0 (>58); GLUCOSE, FASTING 207 MG/DL (70-100); POTASSIUM SERUM 4.2 MEQ/L (3.5-5.1); SODIUM LEVEL 139 MEQ/L (136-145); TOTAL PROTEIN 7.2 GM/DL (6.4-8.2)
[2021-02-03 13:43] LABS: MALB URINE SIEMENS 25.7 MG/L; MAU/CREAT RATIO 11.2 MCG/MG (0.0-30.0)
== END ==
LOC: M SFHCADAM 07:51
PROVIDERS: ATTEND Physician Assistant Medical
DX: E11.9 Type 2 diabetes mellitus without complications (principal)

== ENCOUNTER → 2021-02-14 | Outpatient (CLI) | payer OTHER ==
--- NOTE | 2021-02-15 09:18 | REP ---
INDICATION: RIGHT BREAST ADD VIEWS. Focal asymmetry, upper outer quadrant, right breast. COMPARISON: Screening mammogram, 01/17/2021. TECHNIQUE: 2D and 3D focal compression spot images were obtained of the right breast in the CC and MLO orientations. Targeted right breast ultrasound was performed. FINDINGS: The Volpara volumetric breast density pattern is b, there are scattered areas of fibroglandular density. The isodense focal asymmetry, seen in the middle 3rd of the right breast, above and lateral to the nipple, in the upper outer quadrant, is consistent with normal breast tissue at additional view mammography. Right breast ultrasound: There are no sonographically identifiable cystic or solid masses in the right breast. IMPRESSION: BIRADS/ACR category 1: Negative. This mammogram was interpreted with the aid of an FDA-approved computer-aided detection system. The patient letter being requested is M1. RECOMMENDATION: Repeat screening mammography recommended 1 year (for women over 40). <Electronically signed by Nitesh Sam > 02/15/21 0915
--- NOTE | 2021-02-15 09:21 | REP ---
INDICATION: RIGHT BREAST ADD VIEWS. Focal asymmetry, upper outer quadrant, right breast. COMPARISON: Screening mammogram, 01/17/2021. TECHNIQUE: 2D and 3D focal compression spot images were obtained of the right breast in the CC and MLO orientations. Targeted right breast ultrasound was performed. FINDINGS: The Volpara volumetric breast density pattern is b, there are scattered areas of fibroglandular density. The isodense focal asymmetry, seen in the middle 3rd of the right breast, above and lateral to the nipple, in the upper outer quadrant, is consistent with normal breast tissue at additional view mammography. Right breast ultrasound: There are no sonographically identifiable cystic or solid masses in the right breast. IMPRESSION: BIRADS/ACR category 1: Negative. This mammogram was interpreted with the aid of an FDA-approved computer-aided detection system. The patient letter being requested is M1. RECOMMENDATION: Follow-up screening mammogram in 1 year. <Electronically signed by Nitesh Sam > 02/15/21 0917
== END ==
LOC: M WHC 09:34
PROVIDERS: ATTEND Physician Assistant Medical
DX: R92.8 Other abnormal and inconclusive findings on diagnostic imaging of breast (principal)
CPT/HCPCS: 76642; 77065; G0279

== ENCOUNTER → 2021-08-02 | Outpatient (REF) | payer OTHER ==
[2021-08-02 12:17] LABS: BASO % 0.6 % (0.0-1.0); EOS # 0.2 10^3/uL (0.0-0.5); EOS % 3.8 % (0.0-3.0); HEMATOCRIT 40.1 % (36.0-47.0); HEMOGLOBIN 13.1 g/dl (12.0-15.5); LYMPH # 2.5 10^3/uL (1.5-5.0); LYMPH % 38.6 % (24.0-44.0); MEAN CORPUSCULAR HEMOGLOBIN 31.8 pg (27.0-33.0); MEAN CORPUSCULAR HGB CONC 32.7 g/dl (32.0-36.5); MEAN CORPUSCULAR VOLUME 97.3 fl (80.0-96.0); MONO # 0.4 10^3/uL (0.0-0.8); MONO % 5.7 % (2.0-8.0); NEUTROPHILS # 3.2 10^3/uL (1.5-8.5); PLATELET COUNT, AUTOMATED 418 10^3/uL (150-450); RED BLOOD COUNT 4.12 10^6/uL (4.00-5.40); WHITE BLOOD COUNT 6.3 10^3/uL (4.0-10.0)
[2021-08-02 12:46] LABS: HEMOGLOBIN A1c 7.7 %
[2021-08-02 12:55] LABS: ALBUMIN 3.9 GM/DL (3.2-5.2); ALT/SGPT 39 U/L (12-78); BILIRUBIN,TOTAL 0.5 MG/DL (0.2-1.0); BLOOD UREA NITROGEN 11 MG/DL (7-18); CALCIUM LEVEL 9.3 MG/DL (8.5-10.1); CARBON DIOXIDE LEVEL 28 MEQ/L (21-32); CHLORIDE LEVEL 106 MEQ/L (98-107); CHOLESTEROL LEVEL 241 MG/DL (<200); CHOLESTEROL RISK RATIO 4.084 (<5); CREATININE FOR GFR 0.56 MG/DL (0.55-1.30); GLOMERULAR FILTRATION RATE > 60.0 (>58); GLUCOSE, FASTING 161 MG/DL (70-100); HDL CHOLESTEROL 59 MG/DL (>40); LDL CHOLESTEROL 149 MG/DL (<100); NON-HDL-C 182 MG/DL; POTASSIUM SERUM 4.2 MEQ/L (3.5-5.1); SODIUM LEVEL 141 MEQ/L (136-145); TOTAL 25(OH) VITAMIN D 14.7 NG/ML (30.0-100.0); TRIGLYCERIDES LEVEL 164 MG/DL (<150)
== END ==
LOC: M SFHCADAM 08:22
PROVIDERS: ATTEND Physician Assistant Medical
DX: E11.9 Type 2 diabetes mellitus without complications (principal); E55.9 Vitamin D deficiency, unspecified; E78.2 Mixed hyperlipidemia; E66.3 Overweight

== ENCOUNTER → 2022-02-09 | Outpatient (REF) | payer OTHER ==
[2022-02-09 13:22] LABS: HEMOGLOBIN A1c 6.5 %
[2022-02-09 14:05] LABS: ALBUMIN 3.9 GM/DL (3.2-5.2); ALT/SGPT 23 U/L (12-78); BILIRUBIN,TOTAL 0.4 MG/DL (0.2-1.0); BLOOD UREA NITROGEN 15 MG/DL (7-18); CALCIUM LEVEL 8.9 MG/DL (8.5-10.1); CARBON DIOXIDE LEVEL 29 MEQ/L (21-32); CHLORIDE LEVEL 107 MEQ/L (98-107); CREATININE FOR GFR 0.54 MG/DL (0.55-1.30); GLOMERULAR FILTRATION RATE > 60.0 (>58); GLUCOSE, FASTING 128 MG/DL (70-100); POTASSIUM SERUM 4.4 MEQ/L (3.5-5.1); SODIUM LEVEL 139 MEQ/L (136-145); TOTAL PROTEIN 7.6 GM/DL (6.4-8.2)
[2022-02-09 14:18] LABS: CREATININE, URINE 73.3 MG/DL; MALB URINE SIEMENS 5.3 MG/L; MAU/CREAT RATIO 7.2 MCG/MG (0.0-30.0)
[2022-02-09 14:43] LABS: TOTAL 25(OH) VITAMIN D 31.8 NG/ML (30.0-100.0)
== END ==
LOC: M SFHCADAM 07:54
PROVIDERS: ATTEND Physician Assistant Medical
DX: E11.9 Type 2 diabetes mellitus without complications (principal); E55.9 Vitamin D deficiency, unspecified

== ENCOUNTER → 2022-04-04 | Outpatient (CLI) | payer OTHER | LOC: M WHC 09:05 | PROVIDERS: ATTEND Physician Assistant Medical | DX: Z12.31 Encounter for screening mammogram for malignant neoplasm of breast (principal) ==

== ENCOUNTER → 2022-06-07 | Outpatient (REF) | payer OTHER | LOC: M SFHCWAGY 09:58 | PROVIDERS: ATTEND Nurse Practitioner Family | DX: Z12.4 Encounter for screening for malignant neoplasm of cervix (principal) ==

== ENCOUNTER → 2022-09-27 | Outpatient (REF) | payer OTHER ==
[2022-09-27 14:58] LABS: ALBUMIN 3.9 G/DL (3.2-5.2); ALKALINE PHOSPHATASE 47 U/L (46-116); ALT/SGPT 20 U/L (7.0-40); AST/SGOT 17 U/L (<34); BILIRUBIN,TOTAL 0.5 MG/DL (0.3-1.2); BLOOD UREA NITROGEN 15 MG/DL (9-23); CALCIUM LEVEL 8.8 MG/DL (8.5-10.1); CARBON DIOXIDE LEVEL 29 MMOL/L (20-31); CHLORIDE LEVEL 103 MMOL/L (98-107); CHOLESTEROL LEVEL 218 MG/DL (<200); CHOLESTEROL RISK RATIO 3.26 (<5); CREATININE FOR GFR 0.52 MG/DL (0.55-1.30); GLOMERULAR FILTRATION RATE > 60.0 (>58); GLUCOSE, FASTING 167 MG/DL (60-100); HDL CHOLESTEROL 66.7 MG/DL (>40); LDL CHOLESTEROL 106.7 MG/DL (<100); NON-HDL-C 151.3 MG/DL; POTASSIUM SERUM 4.5 MMOL/L (3.5-5.1); SODIUM LEVEL 137 MMOL/L (136-145); TOTAL 25(OH) VITAMIN D 22.6 NG/ML (20.0-100.0); TOTAL PROTEIN 6.9 G/DL (5.7-8.2); TRIGLYCERIDES LEVEL 223 MG/DL (<150)
[2022-09-27 15:16] LABS: HEMOGLOBIN A1c 7.6 % (4.0-6.0)
== END ==
LOC: M SFHCADAM 07:51
PROVIDERS: ATTEND Physician Assistant Medical
DX: E11.9 Type 2 diabetes mellitus without complications (principal); E55.9 Vitamin D deficiency, unspecified; E78.2 Mixed hyperlipidemia

== ENCOUNTER → 2022-11-29 | Outpatient (REF) | LOC: M EMP 09:41 | PROVIDERS: ATTEND Family Medicine | DX: Z11.52 Encounter for screening for COVID-19 (principal) ==

== ENCOUNTER → 2023-05-15 | Outpatient (REF) | payer BC, OTHER ==
[2023-05-15 15:24] LABS: HEMOGLOBIN A1c 8.2 % (4.0-6.0)
[2023-05-15 15:33] LABS: ALBUMIN 3.8 G/DL (3.2-5.2); ALKALINE PHOSPHATASE 50 U/L (46-116); ALT/SGPT 22 U/L (7.0-40); AST/SGOT 15 U/L (<34); BILIRUBIN,TOTAL 0.3 MG/DL (0.3-1.2); BLOOD UREA NITROGEN 15 MG/DL (9-23); CALCIUM LEVEL 9.2 MG/DL (8.5-10.1); CARBON DIOXIDE LEVEL 29 MMOL/L (20-31); CHLORIDE LEVEL 107 MMOL/L (98-107); CHOLESTEROL LEVEL 246 MG/DL (<200); CHOLESTEROL RISK RATIO 3.96 (<5); CREATININE FOR GFR 0.48 MG/DL (0.55-1.30); GLOMERULAR FILTRATION RATE > 60.0 (>58); GLUCOSE, FASTING 107 MG/DL (60-100); HDL CHOLESTEROL 62.1 MG/DL (>40); LDL CHOLESTEROL 122.1 MG/DL (<100); NON-HDL-C 183.9 MG/DL; POTASSIUM SERUM 5.1 MMOL/L (3.5-5.1); SODIUM LEVEL 142 MMOL/L (136-145); TRIGLYCERIDES LEVEL 309 MG/DL (<150)
[2023-05-15 15:35] LABS: THYROID STIMULATING HORMONE 1.329 uIU/ML (0.55-4.78); TOTAL 25(OH) VITAMIN D 29.7 NG/ML (20.0-100.0)
== END ==
LOC: M SFHCADAM 07:05
PROVIDERS: ATTEND Physician Assistant Medical
DX: E11.9 Type 2 diabetes mellitus without complications (principal); E66.9 Obesity, unspecified; E55.9 Vitamin D deficiency, unspecified

== ENCOUNTER → 2023-07-03 | Outpatient (CLI) | payer MEDICAID, OTHER | LOC: M WHC 08:08 | PROVIDERS: ATTEND Nurse Practitioner Family | DX: Z12.31 Encounter for screening mammogram for malignant neoplasm of breast (principal) ==

== ENCOUNTER → 2023-07-03 | Outpatient (REF) | payer MEDICAID | LOC: M SFHCWAGY 18:20 | PROVIDERS: ATTEND Nurse Practitioner Family | DX: Z12.4 Encounter for screening for malignant neoplasm of cervix (principal) ==

== ENCOUNTER 2023-07-20 09:55 | Emergency (ER) | payer BC, MEDICAID, SELFPAY ==
[~2023-07-20] VITALS: Ht 160 cm; Wt 76.7 kg
[2023-07-20] MEDS ORDERED: PRAV40TA2 (10:01)
[2023-07-20] MEDS ORDERED: GLIP5TAB20 (10:01)
[2023-07-20] MEDS ORDERED: SERT50TA29 (10:01)
[2023-07-20] MEDS ORDERED: TRUL0.5I (10:01)
[2023-07-20] MEDS ORDERED: STEG5TAB (10:01)
[2023-07-20 12:09] LABS: RSV AMPLIFICATION NEGATIVE (NEGATIVE)
[2023-07-20] MEDS ORDERED: AMOX500C PO (12:19)
[2023-07-20 12:33] VITALS: BP 107/74; TEMP 98.4; O2SAT 98
== END 2023-07-20 12:45 | disposition home or self-care (01) ==
LOC: M ED 09:55
DX: J02.0 Streptococcal pharyngitis (principal); E78.5 Hyperlipidemia, unspecified; E11.9 Type 2 diabetes mellitus without complications; Z79.2 Long term (current) use of antibiotics; Z79.4 Long term (current) use of insulin; Z79.84 Long term (current) use of oral hypoglycemic drugs; Z79.899 Other long term (current) drug therapy

== ENCOUNTER → 2023-11-14 | Outpatient (REF) | payer OTHER ==
[~2023-11-14] MED LIST changes: +AMOX500C PO; +GLIP5TAB20; +PRAV40TA2; +SERT50TA29; +STEG5TAB; +TRUL0.5I
[2023-11-14 13:37] LABS: ALBUMIN 3.8 G/DL (3.2-5.2); ALKALINE PHOSPHATASE 54 U/L (46-116); ALT/SGPT 15 U/L (7.0-40); AST/SGOT 8 U/L (<34); BILIRUBIN,TOTAL 0.4 MG/DL (0.3-1.2); BLOOD UREA NITROGEN 13 MG/DL (9-23); CALCIUM LEVEL 9.5 MG/DL (8.5-10.1); CARBON DIOXIDE LEVEL 29 MMOL/L (20-31); CHLORIDE LEVEL 106 MMOL/L (98-107); CREATININE FOR GFR 0.44 MG/DL (0.55-1.30); GLOMERULAR FILTRATION RATE > 60.0 (>58); GLUCOSE, FASTING 120 MG/DL (60-100); POTASSIUM SERUM 4.4 MMOL/L (3.5-5.1); SODIUM LEVEL 139 MMOL/L (136-145)
[2023-11-14 13:46] LABS: BASO % 0.4 % (0.0-1.0); EOS # 0.1 10^3/uL (0.0-0.5); EOS % 1.6 % (0.0-3.0); HEMATOCRIT 41.5 % (36.0-47.0); HEMOGLOBIN 13.3 g/dl (12.0-15.5); LYMPH # 2.3 10^3/uL (1.5-5.0); LYMPH % 27.5 % (24.0-44.0); MEAN CORPUSCULAR HEMOGLOBIN 30.6 pg (27.0-33.0); MEAN CORPUSCULAR VOLUME 95.4 fl (80.0-96.0); MONO # 0.5 10^3/uL (0.0-0.8); MONO % 6.5 % (2.0-8.0); NEUTROPHILS # 5.4 10^3/uL (1.5-8.5); NEUTROPHILS % 63.8 % (36.0-66.0); PLATELET COUNT, AUTOMATED 400 10^3/uL (150-450); RED BLOOD COUNT 4.35 10^6/uL (4.00-5.40); WHITE BLOOD COUNT 8.4 10^3/uL (4.0-10.0)
[2023-11-14 13:54] LABS: HEMOGLOBIN A1c 8.3 % (4.0-6.0)
== END ==
LOC: M SFHCADAM 08:16
PROVIDERS: ATTEND Physician Assistant Medical
DX: E11.9 Type 2 diabetes mellitus without complications (principal); E55.9 Vitamin D deficiency, unspecified; E78.2 Mixed hyperlipidemia; Z68.29 Body mass index [BMI] 29.0-29.9, adult; E66.9 Obesity, unspecified

== ENCOUNTER 2023-11-21 10:54 | Emergency (ER) | payer OTHER ==
[~2023-11-21] VITALS: Ht 160 cm; Wt 76.0 kg
[2023-11-21] MEDS: methocarbamoL 750 MG TAB PO ONE (13:39)
[2023-11-21] MEDS: KETOROLAC 60MG 2ML VIAL IM ONE (13:39)
[2023-11-21 15:17] VITALS: BP 123/78; TEMP 97.3; O2SAT 99
== END 2023-11-21 15:18 | disposition home or self-care (01) ==
LOC: M ED 10:54
DX: M54.50 Low back pain, unspecified (principal); E11.9 Type 2 diabetes mellitus without complications; M51.36 Other intervertebral disc degeneration, lumbar region; M51.37 Other intervertebral disc degeneration, lumbosacral region; Z79.4 Long term (current) use of insulin; Z79.899 Other long term (current) drug therapy
CPT/HCPCS: 72110; 96372; 99283; J1885

== ENCOUNTER → 2024-05-27 | Outpatient (CLI) | payer OTHER ==
[2024-05-27 07:39] LABS: HEMOGLOBIN A1c 6.8 % (4.0-6.0)
[2024-05-27 07:51] LABS: CREATININE, URINE 93.6 MG/DL; MALB URINE SIEMENS < 3.0 MG/L
[2024-05-27 07:53] LABS: ALBUMIN 3.6 G/DL (3.2-5.2); ALKALINE PHOSPHATASE 44 U/L (35-104); ALT/SGPT 15 U/L (7.0-40); AST/SGOT 14 U/L (<34); BILIRUBIN,TOTAL 0.3 MG/DL (0.3-1.2); BLOOD UREA NITROGEN 17 MG/DL (9-23); CALCIUM LEVEL 9.6 MG/DL (8.5-10.1); CARBON DIOXIDE LEVEL 28 MMOL/L (20-31); CHLORIDE LEVEL 107 MMOL/L (98-107); CHOLESTEROL LEVEL 187 MG/DL (<200); CHOLESTEROL RISK RATIO 3.56 (<5); CREATININE FOR GFR 0.54 MG/DL (0.55-1.30); GLOMERULAR FILTRATION RATE > 60.0 (>58); GLUCOSE, FASTING 136 MG/DL (60-100); HDL CHOLESTEROL 52.5 MG/DL (>40); LDL CHOLESTEROL 80.1 MG/DL (<100); NON-HDL-C 134.5 MG/DL; POTASSIUM SERUM 4.4 MMOL/L (3.5-5.1); SODIUM LEVEL 144 MMOL/L (136-145); TOTAL PROTEIN 7.1 G/DL (5.7-8.2); TRIGLYCERIDES LEVEL 272 MG/DL (<150)
== END ==
LOC: M LAB 06:31
PROVIDERS: ATTEND Physician Assistant Medical
DX: E55.9 Vitamin D deficiency, unspecified (principal); E11.9 Type 2 diabetes mellitus without complications; E78.2 Mixed hyperlipidemia

== ENCOUNTER → 2024-11-23 | Outpatient (REF) | payer OTHER ==
[~2024-11-23] MED LIST changes: +GLIP-318; -GLIP5TAB20; -PRAV20TA2; +PRAV20TA78; -PRAV40TA2; +PRAV40TA85
[2024-11-23 14:08] LABS: BASO # 0.0 10^3/uL (0.0-0.2); BASO % 0.5 % (0.0-1.0); EOS # 0.1 10^3/uL (0.0-0.5); EOS % 1.1 % (0.0-3.0); LYMPH # 2.4 10^3/uL (1.5-5.0); LYMPH % 38.2 % (24.0-44.0); MONO # 0.5 10^3/uL (0.0-0.8); MONO % 8.3 % (2.0-8.0); NEUTROPHILS # 3.3 10^3/uL (1.5-8.5); NEUTROPHILS % 51.7 % (36.0-66.0); PLATELET COUNT, AUTOMATED 434 10^3/uL (150-450)
[2024-11-23 14:34] LABS: ESTIMATED AVERAGE GLUCOSE 154.0 MG/DL (60-110)
[2024-11-23 14:36] LABS: ALT/SGPT 13 U/L (7.0-40); AST/SGOT 14 U/L (<34); CALCIUM LEVEL 9.8 MG/DL (8.5-10.1); CARBON DIOXIDE LEVEL 25 MMOL/L (20-31); CHLORIDE LEVEL 103 MMOL/L (98-107); CHOLESTEROL LEVEL 198 MG/DL (<200); CHOLESTEROL RISK RATIO 2.92 (<5); CREATININE FOR GFR 0.55 MG/DL (0.55-1.30); GLOMERULAR FILTRATION RATE > 90.0 (>58); LDL CHOLESTEROL 101.6 MG/DL (<100); NON-HDL-C 130.2 MG/DL; POTASSIUM SERUM 4.5 MMOL/L (3.5-5.1); SODIUM LEVEL 141 MMOL/L (136-145); TRIGLYCERIDES LEVEL 143 MG/DL (<150)
[2024-11-23 14:39] LABS: FREE T4 1.19 NG/DL (0.89-1.76)
== END ==
LOC: M SFHCADAM 08:01
PROVIDERS: ATTEND Physician Assistant Medical
DX: E11.9 Type 2 diabetes mellitus without complications (principal); E55.9 Vitamin D deficiency, unspecified; E78.2 Mixed hyperlipidemia

== ENCOUNTER → 2025-02-12 | Outpatient (CLI) | payer OTHER | LOC: M WHC 12:24 | PROVIDERS: ATTEND Physician Assistant Medical | DX: Z12.31 Encounter for screening mammogram for malignant neoplasm of breast (principal) ==